=== PATIENT | female | born 1945 | race Caucasian/White ===

== ENCOUNTER 2018-05-21 16:10 | Emergency (ER) | payer MEDICARE ==
[~2018-05-21] VITALS: Ht 157.5 cm; Wt 62.6 kg
[~2018-05-21 16:10] MED LIST: ALBUTEROL SULF8.5 GM INH; ASPIR-LOW81 MG ORAL; ATORVASTATIN CA40 MG ORAL; IBUPROFEN600 M1 PO; LACTAID3000 UNIT PO; LOSARTAN POTASS50 MG ORAL; PRILOSEC20 MG ORAL; TAMIFLU75 MG ORAL; ZYRTEC10 M1 ORAL
[2018-05-21 16:33] VITALS: BP 162/64
[2018-05-21 18:05] LABS: BASOPHILS % (AUTO) 0.8 % (0.0-2.0); EOSINOPHILS % (AUTO) 1.2 % (0.0-3.0); HEMATOCRIT 36.1 % (37.0-47.0); HEMOGLOBIN 11.7 G/DL (12.0-16.0); LYMPHOCYTES % (AUTO) 28.3 % (20.0-45.0); MEAN CORPUSCULAR VOLUME 82 FL (80-99); MONOCYTES % (AUTO) 7.7 % (1.0-10.0); NEUTROPHILS % (AUTO) 61.9 % (45.0-75.0); PLATELET COUNT 178 K/UL (150-450); RED BLOOD COUNT 4.38 M/UL (4.20-5.40); RED CELL DISTRIBUTION WIDTH 12.1 % (11.6-14.8); WHITE BLOOD COUNT 6.9 K/UL (4.8-10.8)
--- NOTE | 2018-05-21 18:07 | Emergency Room Report ---
History of Present Illness General Chief Complaint: General Complaint Source: Patient Present Illness HPI Patient complains of right calf pain for 2-3 days. Last night it was quite severe. She took Advil and it helped. She's been working 9-12 hour days. She' s also been grieving the loss of her 2 months ago. There is also swelling in the leg. She was seen at her doctor's office and they suggested that she might have a DVT. She's had knee surgery in the past on that side. She's had some unexplained bruising in addition. The patient is a strong family history for heart disease. She's had some minimal dyspnea on exertion and also minimal chest pain. She denies any hemoptysis, fevers, rashes. She does have varicose vein disease. She has been on HCTZ. She was given Rx for clonidine on top of Losartan today. Mother of DVT/PE. Fam hx CAD. Allergies: Coded Allergies: No Known Allergies (Unverified , 02/01/14) Patient History Past Medical History: see triage record Past Surgical History: other - R knee surgery Pertinent Family History: [place], other - DVT Social History: Denies: smoking, alcohol use, drug use Social History Narrative working at [employer] Reviewed Nursing Documentation: PMH: Agreed; PSxH: Agreed Nursing Documentation-PMH Hx Hypertension: Yes Hx Pacemaker: No Hx Asthma: No Hx COPD: No Hx Diabetes: No Hx Cancer: No Hx Gastrointestinal Problems: No Hx Dialysis: No Hx Neurological Problems: No Hx Cerebrovascular Accident: No Hx Seizures: No Review of Systems All Other Systems: negative except mentioned in HPI Physical Exam Vital Signs Date Time Temp Pulse Resp B/P (MAP) Pulse Ox O2 Delivery O2 Flow Rate FiO2 05/21/18 16:20 98.0 84 18 174/79 97 Room Air 98.1 Sp02 EP Interpretation: reviewed, normal General Appearance: well appearing, no apparent distress, GCS 15 Head: normocephalic Eyes: bilateral eye normal inspection, bilateral eye PERRL ENT: moist mucus membranes Neck: supple Respiratory: lungs clear, normal breath sounds Cardiovascular #1: regular rate, rhythm Cardiovascular #2: 2+ radial (R) Gastrointestinal: normal inspection, normal bowel sounds, non tender, no mass, non-distended Genitourinary: no CVA tenderness Musculoskeletal: back normal, gait/station normal, normal range of motion, calf tenderness - R with min Santa's, also suggestion of cords, swelling Neurologic: alert, oriented x3, grossly normal Psychiatric: depressed affect Skin: warm/dry, other - venous disease, surgical scar R knee Medical Decision Making Diagnostic Impression: Primary Impression: Right leg DVT Qualified Codes: I82.4Z1 - Acute embolism and thrombosis of unspecified deep veins of right distal lower extremity Additional Impressions: Hypokalemia Hypertensive urgency Grief reaction ER Course Patient presents with classic his signs and symptoms of right leg DVT. Other possibilities are rubin cyst, muscles's strain, cellulitis. Based on her exam DVT is high probability. She has other comorbidities and inpatient hospitalization is recommended. She'll be evaluated with ultrasound, labs, chest x-ray and EKG. Because she's had dyspnea and also some chest pain there is some concern about cardiac disease. No evidence of PE at this time based on physical exam. EKG with normal sinus rhythm and left ventricular hypertrophy with repolarization abnormality. Chest x-ray unremarkable. Ultrasound suggests no DVT but hematoma. Clinically, I believe she has DVT - however, will hold on treatment. Potassium is low. Given PO. HTN out of control Catapres given. My clinical suspicion is high for DVT even though US negative. I suggest MRI or CT to r/o DVT. Contacted Dr. Johnson for transfer. Laboratory Tests Test 05/21/18 17:01 White Blood Count 6.9 K/UL (4.8-10.8) Red Blood Count 4.38 M/UL (4.20-5.40) Hemoglobin 11.7 G/DL (12.0-16.0) L Hematocrit 36.1 % (37.0-47.0) L Mean Corpuscular Volume 82 FL (80-99) Mean Corpuscular Hemoglobin 26.6 PG (27.0-31.0) L Mean Corpuscular Hemoglobin Concent 32.3 G/DL (32.0-36.0) Red Cell Distribution Width 12.1 % (11.6-14.8) Platelet Count 178 K/UL (150-450) Mean Platelet Volume 8.6 FL (6.5-10.1) Neutrophils (%) (Auto) 61.9 % (45.0-75.0) Lymphocytes (%) (Auto) 28.3 % (20.0-45.0) Monocytes (%) (Auto) 7.7 % (1.0-10.0) Eosinophils (%) (Auto) 1.2 % (0.0-3.0) Basophils (%) (Auto) 0.8 % (0.0-2.0) Prothrombin Time 10.6 SEC (9.30-11.50) Prothrombin Time INR 1.0 (0.9-1.1) PTT 27 SEC (23-33) Sodium Level 140 MMOL/L (136-145) Potassium Level 3.1 MMOL/L (3.5-5.1) L Chloride Level 104 MMOL/L (98-107) Carbon Dioxide Level 30 MMOL/L (21-32) Anion Gap 6 mmol/L (5-15) Blood Urea Nitrogen 20 mg/dL (7-18) H Creatinine 0.8 MG/DL (0.55-1.30) Estimate Glomerular Filtration Rate > 60 mL/min (>60) Glucose Level 202 MG/DL (74-106) H Calcium Level 8.9 MG/DL (8.5-10.1) Total Bilirubin 0.4 MG/DL (0.2-1.0) Aspartate Amino Transferase (AST) 25 U/L (15-37) Alanine Aminotransferase (ALT) 23 U/L (12-78) Alkaline Phosphatase 66 U/L (46-116) Total Creatine Kinase 114 U/L (26-308) Troponin I 0.000 ng/mL (0.000-0.056) Pro-B-Type Natriuretic Peptide 204 pg/mL (0-125) H Total Protein 6.6 G/DL (6.4-8.2) Albumin 3.1 G/DL (3.4-5.0) L Globulin 3.5 g/dL Albumin/Globulin Ratio 0.9 (1.0-2.7) L EKG Diagnostic Results Rate: normal Rhythm: NSR ST Segments: no acute changes - LVH Rhythm Strip Diag. Results EP Interpretation: yes Rhythm: NSR, no PVC's, no ectopy Chest X-Ray Diagnostic Results Chest X-Ray Diagnostic Results : Chest X-Ray Ordered: Yes # of Views/Limited/Complete: 1 View Indication: Chest Pain EP Interpretation: Yes Interpretation: no consolidation, no effusion, no pneumothorax Impression: No acute disease Electronically Signed by: Electronically signed by Rome Gotti MD Last Vital Signs Date Time Temp Pulse Resp B/P (MAP) Pulse Ox O2 Delivery O2 Flow Rate FiO2 05/21/18 20:31 98.1 75 18 160/65 98 Room Air 98.1 Status: improved Disposition: XFER SHT-TRM HOSP Condition: Serious Referrals: Darren Mendez MD (PCP) Rome Gotti M.D. May 21, 2018 18:07
[2018-05-21 18:11] LABS: ANION GAP 6 mmol/L (5-15); BLOOD UREA NITROGEN 20 mg/dL (7-18); CALCIUM 8.9 MG/DL (8.5-10.1); CARBON DIOXIDE 30 MMOL/L (21-32); CHLORIDE 104 MMOL/L (98-107); CREATININE 0.8 MG/DL (0.55-1.30); POTASSIUM 3.1 MMOL/L (3.5-5.1); SODIUM 140 MMOL/L (136-145)
[2018-05-21 18:19] LABS: ALANINE AMINOTRANSFERASE 23 U/L (12-78); ALBUMIN 3.1 G/DL (3.4-5.0); ALBUMIN/GLOBULIN RATIO 0.9 (1.0-2.7); ALKALINE PHOSPHATASE 66 U/L (46-116); ASPARTATE AMINO TRANSFERASE 25 U/L (15-37); BILIRUBIN,TOTAL 0.4 MG/DL (0.2-1.0); CREATINE KINASE 114 U/L (26-308)
[2018-05-21 18:58] VITALS: BP 160/65
[2018-05-21 19:23] LABS: APPEARANCE,URINE CLEAR; BILIRUBIN, URINE NEGATIVE (NEGATIVE); COLOR,URINE PALE YELLOW; GLUCOSE, URINE (UA) NEGATIVE (NEGATIVE); KETONES,URINE NEGATIVE (NEGATIVE); LEUKOCYTE ESTERASE ,URINE NEGATIVE (NEGATIVE); NITRITE,URINE NEGATIVE (NEGATIVE); PH,URINE 7 (4.5-8.0); PROTEIN,URINE NEGATIVE (NEGATIVE); UROBILINOGEN,URINE NORMAL MG/DL (0.0-1.0)
[2018-05-21 20:21] VITALS: BP 147/66
[2018-05-21 20:31] VITALS: BP 160/65
--- NOTE | 2018-05-22 10:27 | Diagnostic Imaging Report ---
Indication: Chest pain Technique: One view of the chest Comparison: 10/13/2014 Findings: There is mild thoracic scoliotic deformity again demonstrated. Lungs and pleural spaces are clear. Nipple shadow projects at the left lung base. Impression: No acute process This agrees with the preliminary interpretation provided overnight by [facility] teleradiology service.
--- NOTE | 2018-05-23 13:46 | Cardiology Report ---
APPROVED REPORT EKG Measurement Heart [id number] Normal sinus rhythm Left ventricular hypertrophy with repolarization abnormality Abnormal ECG
--- NOTE | 2018-05-23 16:48 | Diagnostic Imaging Report ---
APPROVED REPORT CPT Code: 58458 Present Symptoms Lower Extremity Pain: Right RIGHT LEG: Venous imaging reveals a patent deep venous system. There is no evidence of thrombus within the femoral, popliteal or tibial segments. The greater saphenous vein is also within normal limits. Doppler indicates normal spontaneous flow within these segments. Incidental finding: Cystic, echogenic structure noted at the right popliteal vein level. Possible Bakers cyst, measuring (3.3 cm x 5.4 cm).
== END 2018-05-21 20:32 | disposition short-term general hospital (02) ==
LOC: EMR 17:04
DX: I82.4Z1 Acute embolism and thrombosis of unspecified deep veins of right distal lower extremity (principal); I10 Essential (primary) hypertension; E87.6 Hypokalemia
CPT/HCPCS: 36415; 71045; 80053; 81003; 82550; 83880; 84484; 85025; 85610; 85730; 93005; 93970; 93971; 99284; J8499